=== PATIENT | male | born 1965 | race Caucasian/White ===

== ENCOUNTER 2021-08-30 12:38 | Emergency (ER) | payer OTHER ==
[~2021-08-30] VITALS: Ht 188 cm; Wt 116.1 kg
[2021-08-30] MEDS ORDERED: ASPI81CH PO (13:02)
[2021-08-30 13:42] LABS: BASOPHILS ABSOLUTE AUTO 0.04 K/mm3 (0.00-0.23); BASOPHILS PERCENT AUTO 1 % (0-2); EOSINOPHILS ABSOLUTE AUTO 0.04 K/mm3 (0.00-0.68); EOSINOPHILS PERCENT AUTO 1 % (0-6); Hematocrit 42.2 % (37.0-53.0); Hemoglobin 14.7 g/dL (13.5-17.5); IMMATURE GRAN ABSOLUTE AUTO 0.01 K/mm3 (0.00-0.10); IMMATURE GRAN PERCENT AUTO 0 % (0-1); LYMPHOCYTES ABSOLUTE AUTO 0.58 K/mm3 (0.84-5.20); LYMPHOCYTES PERCENT AUTO 13 % (21-46); MONOCYTES ABSOLUTE AUTO 0.89 K/mm3 (0.16-1.47); MONOCYTES PERCENT AUTO 20 % (4-13); Mean Corpuscular HGB 30.1 pg (26.0-34.0); Mean Corpuscular HGB Conc 34.8 g/dL (31.5-36.5); Mean Corpuscular Volume 87 fL (80-100); Mean Platelet Volume 8.7 fL (9.1-12.4); NEUTROPHILS ABSOLUTE AUTO 2.97 K/mm3 (1.96-9.15); NEUTROPHILS PERCENT AUTO 66 % (41-73); Platelet Count 232 K/mm3 (150-400); RDW Coefficient Variation 12.1 % (11.7-14.2); RDW Standard Deviation 38.5 fL (35.1-46.3); Red Blood Cell Count 4.88 M/mm3 (4.30-5.90); White Blood Cell Count 4.53 K/mm3 (4.00-11.30)
[2021-08-30 13:57] LABS: Albumin, Blood 4.1 g/dL (3.4-5.0); Albumin/Globulin Ratio 1.1 (0.8-1.8); Bilirubin, Total 0.7 mg/dL (0.1-1.0); Calcium, Blood 9.1 mg/dL (8.5-10.1); Creatinine, Blood 0.6 mg/dL (0.60-1.20); Globulin, Blood 3.6 g/dL (2.2-4.0); Total Protein, Blood 7.7 g/dL (6.4-8.2)
== END 2021-08-30 15:34 | disposition home or self-care (01) ==
LOC: ER 12:38
PROVIDERS: Student in an Organized Health Care Education/Training Program
DX: I48.20 Chronic atrial fibrillation, unspecified (principal); R53.1 Weakness; F12.90 Cannabis use, unspecified, uncomplicated; Z79.82 Long term (current) use of aspirin
CPT/HCPCS: 71045; 80053; 84484; 85025; 93005; 93010; 99284-25

== ENCOUNTER 2022-09-01 03:19 | Observation (INO) | payer OTHER ==
[~2022-09-01] VITALS: Ht 188 cm; Wt 126.0 kg
[~2022-09-01 03:19] MED LIST: ASPI81CH PO; METOPROLOL SUCC25 MG PO; XARELTO20 M1 PO
[2022-09-01] MEDS ORDERED: METO50ER PO (03:42)
[2022-09-01 03:48] LABS: BASOPHILS ABSOLUTE AUTO 0.07 K/mm3 (0.00-0.23); BASOPHILS PERCENT AUTO 1 % (0-2); EOSINOPHILS ABSOLUTE AUTO 0.16 K/mm3 (0.00-0.68); EOSINOPHILS PERCENT AUTO 1 % (0-6); Hematocrit 46.7 % (37.0-53.0); Hemoglobin 16.1 g/dL (13.5-17.5); IMMATURE GRAN ABSOLUTE AUTO 0.05 K/mm3 (0.00-0.10); IMMATURE GRAN PERCENT AUTO 0 % (0-1); LYMPHOCYTES ABSOLUTE AUTO 2.82 K/mm3 (0.84-5.20); LYMPHOCYTES PERCENT AUTO 22 % (21-46); MONOCYTES ABSOLUTE AUTO 1.29 K/mm3 (0.16-1.47); MONOCYTES PERCENT AUTO 10 % (4-13); Mean Corpuscular HGB 30.3 pg (26.0-34.0); Mean Corpuscular HGB Conc 34.5 g/dL (31.5-36.5); Mean Corpuscular Volume 88 fL (80-100); Mean Platelet Volume 8.9 fL (9.1-12.4); NEUTROPHILS ABSOLUTE AUTO 8.66 K/mm3 (1.96-9.15); NEUTROPHILS PERCENT AUTO 66 % (41-73); Platelet Count 288 K/mm3 (150-400); RDW Coefficient Variation 11.9 % (11.7-14.2); RDW Standard Deviation 38.4 fL (35.1-46.3); Red Blood Cell Count 5.32 M/mm3 (4.30-5.90); White Blood Cell Count 13.05 K/mm3 (4.00-11.30)
[2022-09-01 04:03] LABS: Prothrombin Time Results 10.5 Sec (9.7-11.5)
[2022-09-01 04:05] LABS: Albumin, Blood 4.1 g/dL (3.4-5.0); Albumin/Globulin Ratio 1.1 (0.8-1.8); Bilirubin, Total 1.4 mg/dL (0.1-1.0); Bun/Creatinine Ratio 20.2 (12.0-20.0); Calcium, Blood 9.4 mg/dL (8.5-10.1); Creatinine, Blood 0.74 mg/dL (0.60-1.20); Globulin, Blood 3.6 g/dL (2.2-4.0); Potassium, Blood 4.5 mmol/L (3.5-5.5); Total Protein, Blood 7.7 g/dL (6.4-8.2)
--- NOTE | 2022-09-01 08:00 | NUR ---
0800 PT PLEASANT COOP A/O, STATES NO FURTHER CHEST PAIN OR PRESSURE. APPEARS IN NO DISTRESS. HR IRREG, NO MURMUR NOTED. HX AFIB. PER TELE AFIB AT 107. LUNGS CLEAR, RESP EASY, UNLABORED. ON R.A. BT X4 LAST BM THIS AM PER PT. VOIDS INDEPENDANT TO BATHROOM. BED IN LOW POSITION, CALL LITE IN REACH, CALLS APPROP. PENDING ECHO.
[2022-09-01 08:04] VITALS: BP 107/89
[2022-09-01] MEDS ORDERED: Deltasone 10 mg10 MG PO (14:54)
--- NOTE | 2022-09-01 16:37 | NUR ---
DISCHARGE REVIEWED WITH PT. IV PULLED BY MARCIAL. TELE REMOVED AND RETURNED. PT VERBALIZED UNDERSTANDING MEDS AND INST. PT WALKED TO DOOR BY MARCIAL. AT 1625.
== END 2022-09-01 17:12 | disposition home or self-care (01) ==
LOC: ER 03:19 → MEDS 03:20
PROVIDERS: Emergency Medicine; ADMIT Internal Medicine
DX: R09.1 Pleurisy (principal); I48.91 Unspecified atrial fibrillation; C85.90 Non-Hodgkin lymphoma, unspecified, unspecified site; Z79.01 Long term (current) use of anticoagulants; Z79.899 Other long term (current) drug therapy
CPT/HCPCS: 36415; 71045; 71275; 80053; 83690; 83880; 84484; 85025; 85610; 85730; 93005; 93010; 93306; A9270; J1885; J2270; J2405; J7030; J7512; Q9967

== ENCOUNTER 2023-04-10 13:08 | Inpatient (IN) | payer OTHER ==
[~2023-04-10] VITALS: Ht 188 cm; Wt 118.8 kg
[~2023-04-10 13:08] MED LIST changes: +Deltasone 10 mg10 MG PO; +METO50ER PO
[2023-04-10 13:42] LABS: BASOPHILS ABSOLUTE AUTO 0.03 K/mm3 (0.00-0.23); BASOPHILS PERCENT AUTO 0 % (0-2); EOSINOPHILS ABSOLUTE AUTO 0.02 K/mm3 (0.00-0.68); EOSINOPHILS PERCENT AUTO 0 % (0-6); Hematocrit 39.9 % (37.0-53.0); Hemoglobin 14.2 g/dL (13.5-17.5); IMMATURE GRAN ABSOLUTE AUTO 0.06 K/mm3 (0.00-0.10); IMMATURE GRAN PERCENT AUTO 1 % (0-1); LYMPHOCYTES ABSOLUTE AUTO 0.94 K/mm3 (0.84-5.20); LYMPHOCYTES PERCENT AUTO 8 % (21-46); MONOCYTES ABSOLUTE AUTO 0.86 K/mm3 (0.16-1.47); MONOCYTES PERCENT AUTO 8 % (4-13); Mean Corpuscular HGB 31.1 pg (26.0-34.0); Mean Corpuscular HGB Conc 35.6 g/dL (31.5-36.5); Mean Corpuscular Volume 88 fL (80-100); Mean Platelet Volume 8.6 fL (9.1-12.4); NEUTROPHILS ABSOLUTE AUTO 9.38 K/mm3 (1.96-9.15); NEUTROPHILS PERCENT AUTO 83 % (41-73); Platelet Count 284 K/mm3 (150-400); RDW Coefficient Variation 12.2 % (11.7-14.2); RDW Standard Deviation 39.2 fL (35.1-46.3); Red Blood Cell Count 4.56 M/mm3 (4.30-5.90); White Blood Cell Count 11.29 K/mm3 (4.00-11.30)
[2023-04-10 13:57] LABS: International Normalized Ratio 0.98; Prothrombin Time Results 10.3 Sec (9.7-11.5)
[2023-04-10 14:14] LABS: Albumin, Blood 3.7 g/dL (3.4-5.0); Bilirubin, Total 0.7 mg/dL (0.1-1.0); Bun/Creatinine Ratio 21.5 (12.0-20.0); Calcium, Blood 8.8 mg/dL (8.5-10.1); Creatinine, Blood 0.65 mg/dL (0.60-1.20); Globulin, Blood 3.7 g/dL (2.2-4.0); Potassium, Blood 4.1 mmol/L (3.5-5.5); Total Protein, Blood 7.4 g/dL (6.4-8.2)
[2023-04-10] MEDS ORDERED: AMIODARONE HCL200 M1 PO (16:42)
[2023-04-10] MEDS ORDERED: PANT40 PO (16:43)
[2023-04-10 18:42] VITALS: BP 150/100
[2023-04-10 19:13] VITALS: BP 131/84
[2023-04-11 02:09] VITALS: BP 137/92
--- NOTE | 2023-04-11 02:14 | NUR ---
HATFIELD BEDSIDE SWALLOW EVAL. HATFIELD BEDSIDE SWALLOW EVAL COMPLETED WITH PATIENT. PATIET PASSED SWALLOW EVAL WITH OUT DIFFICULTY. PATIENTS FACE SYMMETRICAL W/SMILE, ABLE TO MOVE TOUNGE UP/DOWN/SIDE TO SIDE/IN AND OUT OF MOUTH. PATIENT EASILY ABLE TO PUFF OUT CHEEKS WITH LIPS CLOSED. PATIENT TOLERATED DRINKING 3OZ OF WATER SLOWLY AND CONTINUOUSLY WITH OUT ISSUES. NO COUGHING FOLLOWING COMPLETION OF WATER AND EVAL. HOSPITALIST NOTIFIED- DIET CHANGED TO SOFT (BITE SIZED) PER MD ORDER.
--- NOTE | 2023-04-11 06:25 | NUR ---
SHIFT SUMMARY. PATIENT AOX4, CALLS APPROPRIATELY, ABLE TO MAKE NEEDS KNOWN. BEDSIDE PRIYA SWALLOW EVAL COMPLETED, PATIENT PASSED WITH NO DIFFICULTIES. PATIENT IS INDEPENDENT IN ROOM-BMAT DONE W/NO DEFICITS NOTED AND SBA W/FIRST TWO AMBULATIONS TO THE BATHROOM. PATIENT IS ON A SOFT DIET, TELE RUNNING SINUS UMBERTO IN THE 50'S. BED IS LOCKED IN THE LOWEST POSITION W/CALL LIGHT IN REACH.
[2023-04-11 07:12] VITALS: BP 126/85
[2023-04-11 11:07] LABS: BASOPHILS ABSOLUTE AUTO 0.05 K/mm3 (0.00-0.23); BASOPHILS PERCENT AUTO 1 % (0-2); EOSINOPHILS ABSOLUTE AUTO 0.11 K/mm3 (0.00-0.68); EOSINOPHILS PERCENT AUTO 2 % (0-6); Hematocrit 43.6 % (37.0-53.0); Hemoglobin 15.4 g/dL (13.5-17.5); IMMATURE GRAN ABSOLUTE AUTO 0.03 K/mm3 (0.00-0.10); IMMATURE GRAN PERCENT AUTO 0 % (0-1); LYMPHOCYTES ABSOLUTE AUTO 2.02 K/mm3 (0.84-5.20); LYMPHOCYTES PERCENT AUTO 27 % (21-46); MONOCYTES ABSOLUTE AUTO 1.03 K/mm3 (0.16-1.47); MONOCYTES PERCENT AUTO 14 % (4-13); Mean Corpuscular HGB 31.2 pg (26.0-34.0); Mean Corpuscular HGB Conc 35.3 g/dL (31.5-36.5); Mean Corpuscular Volume 88 fL (80-100); Mean Platelet Volume 8.7 fL (9.1-12.4); NEUTROPHILS ABSOLUTE AUTO 4.13 K/mm3 (1.96-9.15); NEUTROPHILS PERCENT AUTO 56 % (41-73); Platelet Count 305 K/mm3 (150-400); RDW Coefficient Variation 12.2 % (11.7-14.2); RDW Standard Deviation 39.2 fL (35.1-46.3); Red Blood Cell Count 4.93 M/mm3 (4.30-5.90); White Blood Cell Count 7.37 K/mm3 (4.00-11.30)
[2023-04-11 11:34] LABS: Creatinine, Blood 0.69 mg/dL (0.60-1.20); Potassium, Blood 3.9 mmol/L (3.5-5.5)
[2023-04-11 14:14] VITALS: BP 129/88
--- NOTE | 2023-04-11 14:45 | NUR ---
NEUROLOGY CONSULT: CALL MADE TO DR. MCQUEEN REGARDING CONSULT ORDER PLACED BY DR. BEAR. DR. MCQUEEN STATED THAT HE WOULD CONTACT DR. BEAR. PATIENT NAME AND DR. BEAR'S NUMBER PROVIDED.
--- NOTE | 2023-04-11 17:40 | NUR ---
SHIFT SUMMARY: PT IS A 57 YEAR OLD MALE HERE AFTER HAVING A STROKE LIKE EPISODE. PATIENT RECALLS FALLING ASLEEP FOR A SOILD 2 HOURS, UNREPSONSIVE AND UNABLE TO MOVE. AFTER THE 2 HOUR EPISODE HE SUDDENLY BECAME ALERT. HE DOES NOT RECALL THE EVENT ITSELF; HIS WAS PRESENT DURING THIS EPISODE. HE CLAIMS TO HAVE WEAKNESS AND LACK OF MOTOR CONTROL OF HIS RIGHT HAND. AN MRI W/WO CONTRAST WAS PERFORMED TODAY ALONG WITH AN ECHO. THE MRI SHOWED FINDINGS TO APPEAR NOT A STROKE, BUT POTENTIAL OTHER FACTORS THAT COULD HAVE CAUSED THE EVENT AND DEEMING IT TO HAVE BEEN A POSSIBLE SEIZURE LIKE EVENT. DR. BEAR REVIEWED WITH THE PATIENT PERSONALLY AND THE PLAN IS TO HAVE THE PATIENT BE SEEN INPATIENT AT THE NEURO CLINIC AT [facility] FOR FURTHER EVALUATION/TESTING. AVAILABLITY AT [facility] IS AVAILABLE FOR THE PATIENT AND COORDINATING MEDICAL TRASPORT AT THIS TIME. PATIENT NOTIFIED. PATIENT HAS NOT HAD ANY EVENTS THROUGHOUT THE SHIFT. FIRST DOSE OF KEPPRA ADMINISTERED AND PATIENT TOLERATING FINE, REPORTS SOME DROWSINESS. HE IS SITTING AT THE SIDE OF THE BED EATING DINNER, CALL LIGHT WITHIN REACH, NO SIGNS OR SYMPTOMS OF DISTRESS. PLAN OF CARE ONGOING.
[2023-04-11 18:01] VITALS: BP 129/88
--- NOTE | 2023-04-11 19:24 | NUR ---
CALLED [facility] FOR SERVICE TO [facility] IN [place]. ETA IN ABOUT 45 MINUTES TO PICK PT UP FOR TRANSPORT.
[2023-04-11 19:47] VITALS: BP 140/100
--- NOTE | 2023-04-11 21:37 | NUR ---
TRANSFER MR GUZMAN WAS TAKEN BY MEDICAL TRANSPORT TO [facility] AT 2015HRS WITH PIV IN PLACE. NO CHANGE IN CONDITION SINCE REPORT RECEIVED AT 1930. TELEMETRY REMOVED PRIOR TO TRANSFER.
== END 2023-04-11 20:13 | disposition short-term general hospital (02) | DRG 65 ==
LOC: ER 13:08 → MEDS 13:09
PROVIDERS: Student in an Organized Health Care Education/Training Program; ADMIT Internal Medicine
DX: I63.9 Cerebral infarction, unspecified (principal); G81.91 Hemiplegia, unspecified affecting right dominant side; R47.81 Slurred speech; R29.701 NIHSS score 1; I48.91 Unspecified atrial fibrillation; K21.9 Gastro-esophageal reflux disease without esophagitis; R47.1 Dysarthria and anarthria; Z85.72 Personal history of non-Hodgkin lymphomas; Z88.5 Allergy status to narcotic agent; Z98.1 Arthrodesis status; Z87.891 Personal history of nicotine dependence
CPT/HCPCS: 36415; 70450; 70496; 70498; 70553; 80048; 80053; 85025; 85610; 92523; 93005; 93010; 93306; 96372; 97112; 97161; 99285-25; A9270; A9579; G0378; J1650; J1953; Q9967

== ENCOUNTER 2024-08-01 08:37 | Day surgery (SDC) | payer MEDICARE ==
[~2024-08-01] VITALS: Ht 188 cm; Wt 116.2 kg
[~2024-08-01 08:37] MED LIST changes: +AMIODARONE HCL200 M1 PO; +NS 500 ML IV ONE; +PANT40 PO
[2024-08-01] MEDS ORDERED: CeFAZolin Sodium 2,000 MG VIAL ONE (08:49)
[2024-08-01] MEDS ORDERED: XARELTO20 MG PO (09:02)
[2024-08-01] MEDS ORDERED: NS 500 ML IV ONE (09:14)
[2024-08-01] MEDS ORDERED: Midazolam HCl 1MG / ML 2ML Vial ONE (09:44)
[2024-08-01] MEDS ORDERED: FentaNYL Citrate 50 MCG/ML 2 ML Injection ONE (09:45)
[2024-08-01] MEDS ORDERED: Ondansetron HCl 2 MG / ML 2ML Vial ONE (09:45)
[2024-08-01] MEDS ORDERED: Lidocaine 1%-Epineph 1:200000 30 ML SDV INJ ONE (09:55)
[2024-08-01 10:11] VITALS: BP 118/87
--- NOTE | 2024-08-01 10:22 | NUR ---
08/01/24 1022 LAZARA TORRES PT IS DIAPHORETIC, C/O OF HEALING HOT, SECOND ICEPACK PROVIDED FOR BACK OF NECK AND COOL CLOTH TO FOREHEAD. RESTING IN RECLINER WITH FEET UP, AT BEDSIDE.
== END 2024-08-01 10:52 | disposition home or self-care (01) ==
LOC: ORSCSDS 08:37
PROVIDERS: Orthopaedic Surgery
PROC: 01N54ZZ Release Median Nerve, Percutaneous Endoscopic Approach (ICD-10-PCS; principal; 2024-08-01 10:00)
DX: G56.02 Carpal tunnel syndrome, left upper limb (principal); I48.91 Unspecified atrial fibrillation; Z87.891 Personal history of nicotine dependence; Z79.01 Long term (current) use of anticoagulants; Z79.899 Other long term (current) drug therapy
CPT/HCPCS: J0690; J2250; J2405; J3010; J7040

== ENCOUNTER → 2024-11-30 | Outpatient (CLI) | payer MEDICARE ==
[~2024-11-30] MED LIST changes: -NS 500 ML IV ONE; +XARELTO20 MG PO
[2024-11-30 19:23] LABS: BASOPHILS ABSOLUTE AUTO 0.06 K/mm3 (0.00-0.23); BASOPHILS PERCENT AUTO 1 % (0-2); EOSINOPHILS ABSOLUTE AUTO 0.24 K/mm3 (0.00-0.68); EOSINOPHILS PERCENT AUTO 3 % (0-6); Hematocrit 44.0 % (37.0-53.0); Hemoglobin 14.8 g/dL (13.5-17.5); IMMATURE GRAN ABSOLUTE AUTO 0.01 K/mm3 (0.00-0.10); IMMATURE GRAN PERCENT AUTO 0 % (0-1); LYMPHOCYTES ABSOLUTE AUTO 2.26 K/mm3 (0.84-5.20); LYMPHOCYTES PERCENT AUTO 32 % (21-46); MONOCYTES ABSOLUTE AUTO 0.80 K/mm3 (0.16-1.47); MONOCYTES PERCENT AUTO 12 % (4-13); Mean Corpuscular HGB Conc 33.6 g/dL (31.5-36.5); Mean Corpuscular Volume 91 fL (80-100); NEUTROPHILS ABSOLUTE AUTO 3.60 K/mm3 (1.96-9.15); NEUTROPHILS PERCENT AUTO 52 % (41-73); NRBC ABSOLUTE 0.00 K/mm3 (0.00-0.02); NRBC Auto 0.0 /100 WBC (0.0-0.2); Platelet Count 279 K/mm3 (150-400); RDW Coefficient Variation 12.2 % (11.7-14.2); RDW Standard Deviation 40.4 fL (35.1-46.3)
[2024-11-30 20:59] LABS: Alanine Aminotransfer (ALT/SGP 24.0 U/L (12-78); Albumin, Blood 3.9 g/dL (3.4-5.0); Albumin/Globulin Ratio 1.3 (0.8-1.8); Anion Gap 13.0 mmol/L (3-11); Aspartate Aminotrans (AST/SGOT 22.0 U/L (12-37); Bilirubin, Total 1.0 mg/dL (0.1-1.0); Blood Urea Nitrogen 16.0 mg/dL (8-24); CO2, Blood 20.0 mmol/L (21-32); Calcium, Blood 9.0 mg/dL (8.5-10.1); Chloride, Blood 106.0 mmol/L (98-108); Creatinine, Blood 0.62 mg/dL (0.60-1.20); Globulin, Blood 3.1 g/dL (2.2-4.0); Glucose, Blood 103.0 mg/dL (70-99); Lactate Dehydrogenase (Ld),Bld 264.0 U/L (100-240); Phosphorus, Blood 4.0 mg/dL (2.5-4.9); Potassium, Blood 4.4 mmol/L (3.5-5.5); Sodium, Blood 135.0 mmol/L (136-145); Total Protein, Blood 7.0 g/dL (6.4-8.2)
== END | disposition home or self-care (01) ==
LOC: LAB SHORT 16:14 → LAB 16:14
PROVIDERS: Internal Medicine Hematology & Oncology
DX: C85.90 Non-Hodgkin lymphoma, unspecified, unspecified site (principal)
CPT/HCPCS: 80053; 83615; 84100; 85025